=== PATIENT | female | born 1990 | race African-American/Black ===

== ENCOUNTER 2024-07-05 11:27 | Emergency (ER) | payer OTHER, SELFPAY ==
[2024-07-05 11:28] VITALS: BP 135/78
--- NOTE | 2024-07-05 11:50 | ED.GENMED ---
History of Present Illness
General
Chief Complaint: Throat Problem
Source: patient
Time Seen by Provider: 07/05/24 11:35
History of Present Illness
History of Present Illness:
34yoF with no significant past medical history presenting for evaluation of a sore throat. Patient reports a sore throat and a dry cough over the past 2 weeks. The pain started to radiate to her R ear 2 days ago. She denies any fevers. She has been
using OTC medications without much relief. Her boyfriend's niece coughed in her face prior to her symptoms starting. She is otherwise asymptomatic and denies any vomiting, diarrhea, abdominal pain.
Phy Exam
General Physical Exam
General Presentation: well appearing and no apparent distress
General age: appears stated age
General Skin: warm and dry
General Habitus: normal
General Mental: alert
General Hydration: appears well hydrated
ENT Exam
ENT Exam: TM's normal, neck supple, normocephalic, swallowing well and other (Mild erythema in posterior oropharynx. No tonsillar hypertrophy or exudates. Uvula midline. No trismus. Normal phonation. Tolerating oral secretions without difficulty.)
Cardiovascular Exam
Cardiovascular Exam: regular rate/rhythm
Pulmonary Exam
Pulmonary Exam: lungs clear, no respiratory distress, no rales, no crackles, no rhonchi and no wheezing
[place] Coma Scale
Eye Opening: Spontaneous
Verbal Response: Oriented
Motor Response: Obeys Commands
GCS Total Score: 15
Skin Exam
Skin Exam: normal color and warm/dry
Psychiatric Exam
Psychiatric Exam: normal mood/affect
Course
Orders/Labs/Results
Orders:
Orders
07/05/24 11:50
Rapid Strep Group A Urgent
RICKY Source: Throat/Pharynx
Specimen Description:
Date Specimen was Collected: 07/05/24
Time Specimen was Collected: 11:49
07/05/24 12:48
Dexamethasone [Decadron] 10 mg PO NOW STA
Vital Signs
Initial and Last Documented VS:
Initial Vital Signs
Temp Pulse Resp BP Pulse Ox
97.4 F 86 16 135/78 100
07/05/24 11:28 07/05/24 11:28 07/05/24 11:28 07/05/24 11:28 07/05/24 11:28
Last Documented Vital Signs
Temp Pulse Resp BP Pulse Ox
97.4 F 80 16 124/74 98
07/05/24 11:28 07/05/24 13:05 07/05/24 13:05 07/05/24 13:05 07/05/24 13:05
MDM/Problems Addressed
Differential Diagnosis Includes:
34yoF here with sore throat and cough x 2 weeks. Now with R ear pain. No fevers. She is afebrile and hemodynamically stable. She is well appearing in no distress. There is mild erythema in the posterior oropharynx. Exam otherwise reassuring. No
clinical signs of [employer], RPA, or epiglottitis. Differential diagnosis includes but is not limited to: viral illness, strep pharyngitis, seasonal allergies
Rapid strep negative. Presentation consistent with viral pharyngitis. Dose of Decadron given and supportive care discussed. Advised f/u with PCP and ED return precautions discussed. She was discharged in stable condition.
*Critical Care Note
Total Time (30-74mins, 75-104mins- exclusive of procedures): Not Applicable
ED Attending Note
-
Portions of this chart may have been created with voice recognition software.� Occasional wrong word or��sound alike� substitutions may have occurred due to the inherent limitations of voice recognition software.
Discharge Plan
Departure
Patient Disposition: Home (Routine Discharge)
Date of Disposition: 07/05/24
Time of Disposition: 12:54
Patient with high blood pressure during this ER visit?: No
Discharge Problem:
Viral pharyngitis
Instructions: Viral Pharyngitis
Referrals:
PRIVATE,PHYSICIAN [Family Provider] -
Activity Restrictions/Additional Instructions:
Drink plenty of fluids and rest. Use honey, tea, and salt water gargles for your sore throat.
Please follow-up with your family doctor. Return to the ER with any worsening symptoms or inability to swallow.
Interventions
Interventions:
*Risk Screen - Suicide Last Done: 07/05/24 11:28
*General Assessment Last Done: 07/05/24 11:48
*Neglect/Abuse Screening Last Done: 07/05/24 11:28
ED- Fall Risk Assessment Last Done: 07/05/24 11:48
*ED COVID-19 Vaccine History Last Done: 07/05/24 11:48
*Nursing Disposition Last Done: 07/05/24 13:05
ED-EENT Assessment Last Done: 07/05/24 11:48
ED- Pulmonary Assessment Last Done: 07/05/24 11:48
Discharge Date and Time
Discharge Date/Time: 07/05/24 13:10
Print Language: WALLISIAN
[2024-07-05] MEDS: DECADRON 10 MG PO (13:02)
[2024-07-05 13:05] VITALS: BP 124/74
== END 2024-07-05 13:10 | disposition home or self-care (01) ==
LOC: EMR 11:27
PROVIDERS: EMERGENCY PHYSICIAN Emergency Medicine
DX: J02.8 Acute pharyngitis due to other specified organisms (principal); B97.89 Other viral agents as the cause of diseases classified elsewhere
CPT/HCPCS: 99282; 87070; 87880

== ENCOUNTER → 2025-04-01 10:46 | Outpatient (REF) | payer OTHER, SELFPAY ==
[2025-04-01 19:19] LABS: Rubella Positive
[2025-04-03 10:18] LABS: Quantiferon Mitogen minus NIL 9.94 IU/mL; Quantiferon NIL 0.06 IU/mL; Quantiferon Plus TB1 minus NIL 0.01 IU/mL (<=0.34); Quantiferon TB Gold Plus Negative (Negative)
[2025-04-03 13:41] LABS: Mumps Virus IgG Positive; Rubeola (Measles) IgG Positive; Varicella Zoster IgG (VZV) Positive
== END ==
LOC: OHS 10:46
PROVIDERS: ATTENDING PHYSICIAN Nurse Practitioner Family
DX: Z23 Encounter for immunization (principal)
CPT/HCPCS: 36415; 86480; 86735; 86762; 86765; 86787